=== PATIENT | female | born 1980 | race Caucasian/White ===

== ENCOUNTER → 2021-01-10 10:39 | Outpatient (CLI) | payer OTHER, SELFPAY ==
--- NOTE | ~2021-01-10 | XR_ITS ---
EXAMINATION: XR hip LT 2V w AP pelvis DATE: 01/10/2021 10:51 INDICATION: Left hip pain. TECHNIQUE: An anteroposterior view pelvis and 2 views of left hip were obtained. COMPARISON: None. FINDINGS: Bone alignment is normal. No acute fracture. There is a reconstruction plate with multiple screws at the acetabulum. There is severe left hip osteoarthritis with loose bodies. Right hip joint space is normal. IMPRESSION: 1. Posttraumatic severe left hip osteoarthritis with loose bodies. Reviewed, dictated and finalized at location A.
== END ==
PROVIDERS: PCP Family Medicine; Visit Provider Nurse Practitioner
DX: M16.12 Unilateral primary osteoarthritis, left hip (principal); M23.42 Loose body in knee, left knee
CPT/HCPCS: 73502

== ENCOUNTER → 2021-02-04 13:52 | Outpatient (CLI) | payer OTHER, SELFPAY ==
--- NOTE | ~2021-02-04 | MM_ITS ---
EXAMINATION: MM screening zelda BI w mehrdad HISTORY: Screening TECHNIQUE: Craniocaudal and mediolateral oblique 3-D tomosynthesis images were obtained and synthetic 2-D images were generated. CAD analysis was submitted and interpreted. COMPARISON: No prior mammogram is available for comparison at this institution. BREAST PARENCHYMAL COMPOSITION: The breasts are heterogeneously dense, which may obscure small masses . FINDINGS: There is no evidence of suspicious mass, calcification, or architectural distortion to sugg est malignancy in either breast. There has been no suspicious interval change. IMPRESSION: 1. No mammographic evidence of malignancy. 2. Recommend routine screening mammography in one year. BI-RADS Category 1: Negative Reviewed, dictated and finalized at location A.
== END ==
PROVIDERS: PCP Family Medicine; Visit Provider Nurse Practitioner
DX: Z12.39 Encounter for other screening for malignant neoplasm of breast (principal)
CPT/HCPCS: 77063; 77067

== ENCOUNTER → 2022-07-29 16:35 | Outpatient (CLI) | payer OTHER, SELFPAY ==
--- NOTE | ~2022-07-29 | XR_ITS ---
EXAMINATION: XR hand LT min 3V INDICATION: Left hand pain TECHNIQUE: Three views of the left hand are obtained. COMPARISON: None available FINDINGS: No fracture, dislocation, or subluxation. The bones, soft tissues, and joint spaces are nor mal. IMPRESSION: 1. No acute osseous abnormality. Reviewed, dictated and finalized at location F. GER ENTRY
--- NOTE | ~2022-07-29 | XR_ITS ---
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 COMPARISON: None available FINDINGS: Bone alignment is normal. There is no fracture. Deformity in the distal shaft of the left r adius is consistent with history of prior surgical change. The soft tissues are unremarkable. IMPRESSION: 1. No acute osseous abnormality. 2. Deformity of the distal shaft of the left radius, consistent with prior surgery. Correlation with prior imaging is recommended. Reviewed, dictated and finalized at location F. ES SCHEDULER IMPRESSION: 1. No acute osseous abnormality. 2. Deformity of the distal shaft of the left radius, consistent with prior surg terri. Correlation with prior imaging is recommended.
== END ==
PROVIDERS: PCP Nurse Practitioner; Visit Provider Nurse Practitioner
DX: M79.642 Pain in left hand (principal); M25.532 Pain in left wrist
CPT/HCPCS: 73110; 73130

== ENCOUNTER → 2023-02-23 12:09 | Outpatient (CLI) | payer OTHER, SELFPAY ==
--- NOTE | ~2023-02-23 | XR_ITS ---
XR knee RT min 4V DATE: 02/23/2023 12:38 INDICATION: Right knee pain TECHNIQUE: 4 views COMPARISON: None FINDINGS: Mild suprapatellar knee joint effusion is suggested. No fracture or dislocation. No periosteal reaction or bone destruction. Joint spaces are well preserved. No radiopaque intra-articular loose body or chondrocalcinosis is det ected. IMPRESSION: Suggestion of mild suprapatellar knee joint effusion; otherwise negative Reviewed, dictated and finalized at location L. IMPRESSION: Suggestion of mild suprapatellar knee joint effusion; otherwise neg ative
== END ==
PROVIDERS: PCP Family Medicine; Visit Provider Family Medicine
DX: M25.561 Pain in right knee (principal)
CPT/HCPCS: 73564

== ENCOUNTER 2023-03-25 12:30 | Outpatient (RCR) | payer OTHER, SELFPAY ==
--- NOTE | 2023-02-25 16:36 | PTOPEVAL1 ---
Assessment and note entered by Forrest Arteaga, PT, DPT Evaluation Information Assessment Status Evaluation Diagnosis R knee pain Onset 3 weeks Subjective Information Pt states she recently started running and had an increase in knee pain after 3 days that prevented her from running and doing her other forms of exercise. She normally does lots of squats and lifts without an issues. She reports pain on the stairs as well. Pt states she cannot run around with her kids d/t pain. She reports 2/10 at rest, and 9/10 at rest. She reports a sharp pain at the medial and lateral joint line. Reported Pain Level Pain Score 2: Self Report Assessment PT Clinical Summary Mame presents to therapy today for her initial evaluation with a diagnosis of R knee pain. Today she demonstrate R knee active ROM that is slightly decreased compared to her L knee with tenderness to palpation. She demonstrates hip flexor tightness R>L as well. Skilled physical therapy services are indicated to manage pain, to normalize movement pattern, and to return to PLOF without limitations. Plan of Care Interventions Electrical Stimulation,Gait Training,Hot Pack/Cold Pack,Manual Therapy,Neuro Re-education,Patient/ Caregiver Educati,Therapeutic Activities, Therapeutic Exercise PT Services Indicated Yes Treatment Frequency and 1x/wk for 4 wks Duration These treatments will address the objective and functional deficits as defined above. The patient will be advanced safely and appropriately in order for the patient to progress towards his/her prior level of function. Additional exercises will be introduced and as well as a comprehensive home exercise program upon discharge, if needed, ?to ensure carryover of functional gains achieved in the clinic. This treatment plan has been reviewed and agreement upon by the patient.
--- NOTE | 2023-02-25 16:36 | OPREHPOC ---
Outpatient Therapy Plan of Care This is a Multidisciplinary Plan of Care that may contain components documented by all disciplines (PT, OT, and ST.) PT Problem 1 PT Problem #1 Knowledge Deficit PT Goal 1 Goal Pt to be IND with issued HEP Target Visit 4 PT Problem 2 PT Problem #2 Pain PT Goal 1 Goal Pt to report knee pain no greater than 3/10 in the last week Target Visit 4 PT Goal 2 Goal Pt to report 75% improvement in overall symptoms Target Visit 4 PT Problem 3 PT Problem #3 Impaired Flexibility PT Goal 1 Goal Pt to report equal stretch sensation with gastroc stretch and hip flexor stretch Target Visit 4 PT Problem 4 PT Problem #4 Impaired Gait PT Goal 1 Goal Pt to be able to jog 1 mile without an increase in pain Target Visit 4 PT Problem 5 PT Problem #5 Impaired Strength PT Goal 1 Goal Pt to be able to return to squatting 100lb without an increase in pain Target Visit 4
--- NOTE | 2023-04-05 11:41 | PTOPPROG ---
Assessment and note entered by Forrest Arteaga, PT, DPT Evaluation Information Assessment Status Progress Diagnosis R knee pain Onset 3 weeks Subjective Information Pt states she is doing really good. She states she has learned a lot in the last month. She states she ran today without an pain for the first time. She states she has learned about her running form and has been working to improvement this. Assessment PT Clinical Summary Mame presents to therapy today for her progress report following 4 visits of skilled therapy with a diagnosis of R knee pain. Today she demonstrate R knee active ROM that is equal to the L knee. She continues to demonstrates hip flexor tightness R>L but this has improved. She jogged for the first time today without an increase in pain. Pts chart will be left open for a month for a follow up if needed. Plan of Care Interventions Electrical Stimulation,Gait Training,Hot Pack/Cold Pack,Manual Therapy,Neuro Re-education,Patient/ Caregiver Educati,Therapeutic Activities, Therapeutic Exercise PT Services Indicated Yes Treatment Frequency and follow up in 1 month if needed Duration These treatments will address the objective and functional deficits as defined above. The patient will be advanced safely and appropriately in order for the patient to progress towards his/her prior level of function. Additional exercises will be introduced and as well as a comprehensive home exercise program upon discharge, if needed, ?to ensure carryover of functional gains achieved in the clinic. This treatment plan has been reviewed and agreement upon by the patient.
--- NOTE | 2023-05-07 11:55 | PTOPDC ---
Assessment and note entered by Forrest Arteaga, PT, DPT Evaluation Information Assessment Status Discharge - Pt Not Present Diagnosis R knee pain Onset 3 weeks Subjective Information Pt called clinic today to follow up. States she is doing great and is okay to be discharged. Assessment PT Clinical Summary Pt completed 5 visits of skilled therapy from 02/25 to 03/25/23. She will be discharged at this time per request. Plan of Care PT Services Indicated No
== END 2023-05-17 13:41 | disposition home or self-care (01) ==
LOC: ANHGOSHPT 12:30
PROVIDERS: PCP Family Medicine; Visit Provider Family Medicine
DX: M25.561 Pain in right knee (principal)
CPT/HCPCS: 97110; 97112; 97140; 97161; 97530

== ENCOUNTER 2023-08-06 08:08 | Outpatient (CLI) | payer OTHER, SELFPAY ==
[2023-08-06 13:25] LABS: Basophils Percent Auto 0.5 % (0.2-1.2); Eosinophils Absolute Auto 0.1 K/mm3 (0-0.3); Eosinophils Percent Auto 1.6 % (0-4.4); Hematocrit 47.7 % (37.0-47.0); Hemoglobin 15.4 g/dL (12.0-15.0); Immature Granulocyte Absolute 0.01 K/mm3 (0.00-0.031); Immature Granulocyte Percent A 0.2 % (0-0.5); Lymphocytes Absolute Auto 1.81 K/mm3 (0.9-3.2); Mean Corpuscular HGB Conc 32.3 g/dl (32-36); Mean Corpuscular Hemoglobin 29.1 pg (26-34); Mean Corpuscular Volume 90.2 fl (80-100); Mean Platelet Volume 11.1 fl (7.4-10.4); Monocytes Absolute Auto 0.4 K/mm3 (0.1-0.6); Monocytes Percent Auto 7.8 % (2.6-8.5); Neutrophils Absolute Auto 3.3 K/mm3 (1.3-6.7); Neutrophils Percent Auto 57.9 % (45.5-73.1); Platelet Count Result 226 k/mm3 (150-375); Red Blood Count 5.29 M/mm3 (4.2-5.4); Red Cell Distribution Width 13.4 % (11.5-14.5); White Blood Count 5.7 K/mm3 (4.5-10.0)
[2023-08-06 13:32] LABS: Alanine Aminotransferase 28 U/L (6-35); Albumin Level 4.4 g/dL (3.5-5.1); Alkaline Phosphatase 71 U/L (38-126); Anion Gap 9 mmol/L (8-16); Aspartate Amino Transferase 38 U/L (14-36); Bilirubin,Total 0.7 mg/dL (0.2-1.3); Blood Urea Nitrogen 15 mg/dL (7-17); Calcium 9.2 mg/dL (8.4-10.2); Carbon Dioxide 25 mmol/L (22-30); Chloride 103 mmol/L (98-107); Cholesterol 242 mg/dL (0-200); Estimated Glomerular Filt Rate > 60; Glucose 83 mg/dL (65-110); HDL Direct 42 mg/dL; Potassium 4.1 mmol/L (3.4-5.0); Sodium 137 mmol/L (137-145); Triglycerides 150 mg/dL (<150)
[2023-08-06 13:43] LABS: LDL Cholesterol Direct 135 mg/dL
[2023-08-06 14:51] LABS: Vitamin D 25 Hydroxy 28.9 ng/mL
== END 2023-08-06 08:09 | disposition home or self-care (01) ==
LOC: ANHGOSHLAB 08:10
PROVIDERS: PCP Family Medicine; Visit Provider Family Medicine
DX: Z00.00 Encounter for general adult medical examination without abnormal findings (principal); E55.9 Vitamin D deficiency, unspecified; E53.8 Deficiency of other specified B group vitamins; E04.9 Nontoxic goiter, unspecified; E78.2 Mixed hyperlipidemia
CPT/HCPCS: 36415; 80053; 80061; 82306; 82607; 84443; 85025

== ENCOUNTER 2024-03-28 13:00 | Outpatient (RCR) | payer OTHER, SELFPAY ==
--- NOTE | 2024-02-29 09:52 | PTOPEVAL1 ---
Assessment and note entered by Forrest Arteaga, PT, DPT Evaluation Information Assessment Status Evaluation Diagnosis low back pain ICD-10 Condition Codes (PT) Pain in low back M54.50 Subjective Information Pt states in the last month or so her back has started to hurt but has started to get progressively better. She states she can go yard work and perform body weight exercises without pain but if she is bending over slightly to cook or do dishes she starts to get pain. She also has a young child to take care of and her back will increase in pain when completing necessary tasks. Her pain is better in the morning and worse at night. She took muscle relaxers with some relief. She declines a ABDULLAHI. Reported Pain Level Pain Score 0: Self Report Assessment PT Clinical Summary Mame presents to therapy today for her initial evaluation with a diagnosis of low back pain. Upon evaluation she demonstrates asymmetries in pelvic alignment and muscle flexibility. Alignment was corrected throughout muscle energy techniques. She was issued an HEP with hip stability and flexibility exercises. She would like to continue her HEP IND and will follow up in a month. Plan of Care Interventions Electrical Stimulation,Hot Pack/Cold Pack,Manual Therapy,Neuro Re-education,Patient/Caregiver Educati,Therapeutic Activities,Therapeutic Exercise PT Services Indicated Yes Treatment Frequency and follow up in 1 month Duration These treatments will address the objective and functional deficits as defined above. The patient will be advanced safely and appropriately in order for the patient to progress towards his/her prior level of function. Additional exercises will be introduced and as well as a comprehensive home exercise program upon discharge, if needed, ?to ensure carryover of functional gains achieved in the clinic. This treatment plan has been reviewed and agreement upon by the patient.
--- NOTE | 2024-03-28 14:10 | PTOPDC ---
Assessment and note entered by Forrest Arteaga, PT, DPT Evaluation Information Assessment Status discharge Diagnosis low back pain ICD-10 Condition Codes (PT) Pain in low back M54.50 Subjective Information Pt states overall her back is doing much better, she states randomly she will have a rough day where everything feels like it hurts but overall doing much better. She states one of the toughest things is getting her son in/out of bed. Reported Pain Level Pain Score 0: Self Report Assessment PT Clinical Summary Pt returns today after a month long participation in an HEP to treat her low back pain. She states her daily pain reports have decreased in intensity and frequency but have not gone away completely. Educated pt on lifting mechanics to improve care taking of her son. She declines any further need for skilled PT services, she will be discharged at this time.
== END 2024-03-28 15:37 | disposition home or self-care (01) ==
LOC: ANHGOSHPT 13:00
PROVIDERS: PCP Family Medicine; Visit Provider Student in an Organized Health Care Education/Training Program
DX: S39.012D Strain of muscle, fascia and tendon of lower back, subsequent encounter (principal)
CPT/HCPCS: 97110; 97161

== ENCOUNTER 2024-05-04 09:00 | Emergency (ER) | payer OTHER, SELFPAY ==
--- NOTE | ~2024-05-04 | XR_ITS ---
EXAMINATION: XR chest 2V DATE: 05/04/2024 09:35 INDICATION: Productive cough TECHNIQUE: frontal view of the chest was obtained. COMPARISON: None FINDINGS: The lungs are clear with no focal airspace opacities, pulmonary edema, pleural effusion or pneumothor ax. The cardiomediastinal silhouette is normal. Mild lower thoracic levocurvature. IMPRESSION: 1. No acute cardiopulmonary disease. Reviewed, dictated and finalized at location A.
--- NOTE | 2024-05-04 09:05 | ED.URI ---
HPI - URI/Sore Throat General Chief Complaint: Upper Respiratory Infection Stated Complaint: congestion and cough Time Seen by Provider: 05/04/24 09:20 Source: patient Mode of arrival: ambulatory Limitations: no limitations History of Present Illness HPI Narrative: Mame is a 44-year-old female patient presenting to the clinic today with complaints productive cough with brown phlegm, chest congestion, and shortness of breath x3 days. States she has been using an old inhaler this is been helping relieve some of the shortness of breath. Just got back from a [place] cruise. States that both of her children are sick as well and are seeing their doctors today. MD elicited complaint: cough and other (Chest congestion, shortness of breath) Related Data Allergies Allergy/AdvReac Type Severity Reaction Status Date / Time sertraline [From Zoloft] Allergy Intermediate Rash Verified 05/04/24 09:18 Sulfa (Sulfonamide Allergy Rash Verified 05/04/24 09:18 Antibiotics) Review of Systems Review of Systems: Pertinent positives per HPI. Patient denies any fever, chills, rash, headache, visual changes, dizziness, chest pain, palpitations, nausea, vomiting, diarrhea, constipation, abdominal pain, or any urinary issues. [facility] Past Medical History Medical History Chronic left hip pain Headache Migraine Osteoarthritis of left hip post traumatic Seasonal allergies Surgical History Surgical History H/O left wrist surgery (~1994) fibroma excision History of bunionectomy of left great toe (~2006) History of left hip replacement (~01/26/22) History of repair of left hip joint ORIF left acetabular fracture 1997 Family History Family History Father Alcoholism Diabetes mellitus Hypertension Social History Social History Social History: Caffeine- coffee Smoking status: Never smoker Alcohol intake: current Alcohol use details: rarely Substance use: never Substance use type: does not use Lack of Transportation: No Lack of Food: Never True Current Housing: I Have Housing Concerned About Future Housing: No Difficulty Paying Gas/Electric Bills: No Difficulty Paying for Meds: No Currently Unemployed: No Education: Trade/Vocational Certificate Difficulty w/ Childcare or Family Care: No Living arrangements: with family Gender identity (if verbalized by the patient): Female Agree to blood products: Yes Comments At the time of my signature, I reviewed and agree with the nursing past medical, surgical, social, and family history. There is no relevant family history pertinent to the patient complaint. Exam Narrative: General: Well-developed, well nourished, in no apparent distress Head: Normocephalic, atraumatic Eyes: Pupils equally round and reactive to light bilaterally, EOM intact, sclera and conjunctive clear, no discharge, lids normal Ears: TMs intact and clear, ear canals clear, no drainage, grossly hearing normal. Nose: Nares patent, clear nasal discharge, no inflammation, no sinus tenderness. Mouth: Oral pharynx without lesions or masses, good dentition, MMM. Neck: Supple, trachea midline, no enlargement of anterior or posterior cervical nodes, no thyroid masses or goiter palpable. Cardio: Regular rate and rhythm, s1 and s2 normal, no murmur appreciated. Resp: Lung sounds mildly coarse, no rhonchi, rales, wheezing or rubs Course Course Emergency Course: Portions of this record may have been created with voice recognition software. Level of Care: Express Care Visit Vital Signs Vital signs: Vital signs reviewed MDM - URI/Sore Throat MDM Narrative Medical decision making narrative: At the time of visit patient is resting comfortably on the exam t
[2024-05-04 09:10] VITALS: BP 124/68; PULSE 86; RESP 18; TEMP 36.9; O2SAT 100
[2024-05-04 09:35] LABS: EDCOVIDSCREEN Positive (Negative)
== END 2024-05-04 09:46 | disposition home or self-care (01) ==
PROVIDERS: Emergency Provider Nurse Practitioner Family; PCP Family Medicine
DX: U07.1 COVID-19 (principal); M16.52 Unilateral post-traumatic osteoarthritis, left hip; T14.90XS Injury, unspecified, sequela; X58.XXXS Exposure to other specified factors, sequela; Z96.641 Presence of right artificial hip joint
CPT/HCPCS: 71046; 87426; 99213; G0463

== ENCOUNTER 2025-03-12 09:52 | Outpatient (CLI) | payer OTHER, SELFPAY ==
--- NOTE | ~2025-03-12 | XR_ITS ---
XR hip BI 2V w AP pelvis 03/12/2025 10:22 Indication: Left hip pain Procedure: AP pelvis and 2 views each hip Comparison: 01/10/2021 Findings: There is a side plate and screws transfixing the left hemipelvis. There is a left bipolar h emiarthroplasty. No acute fracture, subluxation or dislocation. Sacral foramen are symmetric. No soft tissue abnormality. Pelvic rings intact. Impression: 1: No acute bone or joint abnormality. Reviewed, dictated and finalized at location A. Impression: 1: No acute bone or joint abnormality.
--- NOTE | ~2025-03-12 | XR_ITS ---
XR lumbar spine min 4V 03/12/2025 10:22 Indication: Back pain Procedure: 5 views lumbar spine Comparison: No prior studies for comparison. Findings: Vertebral body heights are maintained. There is mild disc narrowing at L5-S1. There is face t hypertrophy at L4-5 and L5-S1. No acute fracture, subluxation or spondylolisthesis. There are surgi estela changes of the pelvis partially visualized. There are calcifications in the right mid abdomen, po ssibly lymph node calcifications, although low-lying gallbladder with stones is possible. Impression: 1: Mild lumbar spondylosis. Reviewed, dictated and finalized at location A. Impression: 1: Mild lumbar spondylosis.
== END 2025-03-12 09:53 | disposition home or self-care (01) ==
PROVIDERS: PCP Nurse Practitioner Family; Visit Provider Nurse Practitioner Family
DX: M47.816 Spondylosis without myelopathy or radiculopathy, lumbar region (principal)
CPT/HCPCS: 72110; 73521